=== PATIENT | male | born 1970 | race Hispanic/Latino ===

== ENCOUNTER 2019-08-07 13:26 | Outpatient (CLI) | payer OTHER ==
--- NOTE | 2019-08-07 15:19 | CT ---
CT LUMBAR SPINE WITHOUT CONTRAST: INDICATIONS: Lumbar radiculopathy; back injury while at work with severe low back pain extending down right leg COMPARISON: MR of the lumbar spine dated October 02, 2015 TECHNIQUE: Multiple CT images were obtained of the lumbar spine without contrast. Axial, coronal, and sagittal r eformatted images were constructed from the raw data. FINDINGS: Visualized retroperitoneal and paravertebral soft tissues: Within normal limits Spinal alignment: Within normal limits. Spinal instrumentation or postsurgical change: There is a right hemilaminectomy at L5. There is an un united transverse process on the right at L1. At L5-S1, there is a stable asymmetric to the right disc osteophyte complex inducing lengthening wors ening [id number] right and mild left neural foraminal narrowing. There is mild right lateral recess narrowing suspected involving the broad-based disc osteophyte complex. This appears similar to the comparison exam.. At L4-5, there is a broad-based bulge with facet hypertrophy inducing mild central canal narrowing wi th moderate left and moderate to severe right neural foraminal narrowing. This appears slightly progressed from the prior exam. At L3-4, there is a broad-based bulge with facet hypertrophy and loss of disc space height inducing m ild bilateral neural foraminal narrowing and mild central canal narrowing At L2-3, there is a suspected broad-based bulge with a superimposed right paracentral protrusion pote ntially inducing right lateral recess narrowing and mild central canal narrowing. There is mild bilateral neural foraminal narrowing. This appears new from the comparison exam. At L1-L2, there is no appreciable osseous central canal or neural foraminal narrowing. At T12-L1, there is no appreciable central canal or neuroforaminal narrowing. IMPRESSION: 1. Worsening multilevel spondylosis of the lumbar spine at L4-5 and L2-3. An MRI of the lumbar spine would be helpful to evaluate degree of central canal and neural foraminal narrowing related to disc material. 2. Stable moderate to severe right and moderate left neural foraminal narrowing at L4-5. 3. Stable mild to moderate right and mild left neural foraminal narrowing at L5-S1. 4. Suspected right paracentral protrusion at L2-3 potentially narrowing the right lateral recess and central canal as above. There is mild bilateral neural foraminal narrowing at L2-3 which appears new.
== END 2019-08-07 13:27 | disposition home or self-care (01) ==
LOC: BICCT 13:26
PROVIDERS: ATTEND Family Medicine
DX: M47.26 Other spondylosis with radiculopathy, lumbar region (principal); M48.061 Spinal stenosis, lumbar region without neurogenic claudication; M48.07 Spinal stenosis, lumbosacral region
CPT/HCPCS: 72131

== ENCOUNTER 2019-11-19 12:29 | Outpatient (CLI) | payer OTHER ==
--- NOTE | 2019-11-19 14:13 | MRI ---
MR the lumbar spine with and without contrast INDICATION: 49-year-old male with lumbar radiculopathy; lower right-sided back pain with pain and num bness that extends down the right leg since placing a box standing hurting his back in June 2019. History of lumbar spinal surgery in 2009 and 2015. COMPARISON: MR the lumbar spine without contrast dated October 02, 2015 TECHNIQUE: Multiplanar multisequence MR images were obtained of lumbar spine with and without IV cont rast. Contrast: 20 cc of MultiHance. FINDINGS: Bone marrow: There is a herniated Schmorl's node involving inferior endplate of L5. Bone marrow signa l intensity otherwise appears within normal limits. Distal spinal cord and conus: Normal. Conus is seen to terminate at the T12-L1 level. Visualized retroperitoneum and paraspinal soft tissues: Normal. No lymphadenopathy demonstrated. Vertebral levels: L5-S1: There is an asymmetric to the right disc osteophyte complex with loss of disc space height ind ucing mild neural foraminal encroachment, right greater than left. L4-5: There is postprocedural change of a right hemilaminotomy at L4-5. There is an asymmetric to the right broad-based disc bulge with facet hypertrophy and loss of disc space height inducing mild bilateral neural foraminal narrowing, right greater than left. The asymmetric to the right disc bulge and facet hypertrophy does cause moderate to severe right lateral recess narrowing that is much more pronounced than on the prior examination. This has potential for impingement of the traversing r ight L5 nerve root. L3-4: There is a broad-based disc bulge with facet hypertrophy inducing mild neural foraminal encroac hment L2-3: There is mild broad-based bulge inducing mild central canal narrowing but no appreciable neural foraminal narrowing. L1-L2: No appreciable central canal or neuroforaminal narrowing. T12-L1: No appreciable central canal or neuroforaminal narrowing. Postcontrast series: No abnormal enhancement demonstrated. IMPRESSION: 1. Worsening moderate to severe right lateral recess narrowing due to a slightly more pronounced, asy mmetric to the right, broad-based disc disc bulge at L4-5 inducing moderate to severe right lateral recess narrowing with potential for impingement of the traversing right L5 nerve root. 2. Mild bilateral neural foraminal narrowing at L5-S1 and L4-5 appears similar to the prior exam
[2019-11-19] MEDS ORDERED: Magnevist 469MG/ML 20 ML VIAL ONE (14:53)
== END 2019-11-19 12:30 | disposition home or self-care (01) ==
LOC: BICMRI 12:29
PROVIDERS: ATTEND Neurological Surgery
DX: M51.16 Intervertebral disc disorders with radiculopathy, lumbar region (principal); M48.07 Spinal stenosis, lumbosacral region; M48.061 Spinal stenosis, lumbar region without neurogenic claudication
CPT/HCPCS: 72158; A9579

== ENCOUNTER 2020-01-24 05:55 | Outpatient (CLI) | payer OTHER ==
[2020-01-24 08:53] VITALS: BMI 29.5
[2020-01-24 19:38] LABS: SARS-CoV-2 MS2 Positive; SARS-CoV-2 N Gene Negative; SARS-CoV-2 S Gene Negative; SARS-CoV-2 orf1ab Negative
== END 2020-01-24 05:56 | disposition home or self-care (01) ==
LOC: LABBT 05:55
PROVIDERS: ATTEND Neurological Surgery
DX: Z01.812 Encounter for preprocedural laboratory examination (principal); Z11.59 Encounter for screening for other viral diseases; M54.16 Radiculopathy, lumbar region
CPT/HCPCS: 87635; U0003